=== PATIENT | female | born 1950 | race Native Hawaiian/Other Pacific Islander ===

== ENCOUNTER 2022-11-14 10:02 | Day surgery (SDC) | payer MEDICARE ==
--- NOTE | 2022-11-14 08:31 | HP ---
DATE OF SURGERY: 11/14/2022 HISTORY OF PRESENT ILLNESS: The patient is a 72-year-old with history of polyps in the past. No history of colon cancer. No change in bowel movements. No bloody stools. She is in need of follow up screening colonoscopy. PAST MEDICAL HISTORY: Diabetes mellitus type II. Hyperlipidemia. History of sinus infections in the past. PAST SURGICAL HISTORY: Laparoscopic cholecystectomy. Hysterectomy. She had colonoscopy in the past. MEDICATIONS: Atorvastatin, glimepiride, metformin. ALLERGIES: NKDA. FAMILY HISTORY: Diabetes. SOCIAL HISTORY: No smoking or alcohol abuse. REVIEW OF SYSTEMS: Fourteen systems reviewed. No chest pain or palpitations. Other systems negative or noncontributory as above and per preadmission questionnaire. PHYSICAL EXAMINATION: Weight 167 pounds. BMI 27.8. GENERAL: No acute distress. HEENT: Sclerae nonicteric. NECK: No JVD. CHEST: Equal excursion, nonlabored breathing. CVS: Regular rate and rhythm. ABDOMEN: Soft. No peritoneal signs. EXTREMITIES: No significant edema. NEURO: Alert, oriented, moving extremities symmetrically. RECTAL: Deferred timed to endoscopy exam. PSYCH: Appropriate mood and affect. SKIN: Dry. IMPRESSION: History of polyps, in need of follow up screening colonoscopy. I feel the patient is a candidate. She was shown the risk sheet explained the procedure in detail including but not limited to bleeding or infection, risk of bowel injury or perforation, risk of missed or nondiagnosis or incomplete exam possibly requiring barium enema, other studies or procedures, general risk of anesthesia or sedation, risk of bowel prep but not limited to, consent obtained. Will proceed with outpatient colonoscopy under MAC anesthesia.
[2022-11-14] MEDS ORDERED: Lactated Ringers 1,000 ML IV ONE (10:39)
[2022-11-14] MEDS ORDERED: Lactated Ringers 1,000 ML IV SCH (11:00)
[2022-11-14] MEDS ORDERED: Versed 2 MG/2 ML Injection ONE (11:47)
[2022-11-14] MEDS ORDERED: Xylocaine-Mpf 2% 5 Ml Vial ONE (11:47)
[2022-11-14] MEDS ORDERED: DIPRIVAN 200 MG/20 ML IV ONE ×2 (11:47→12:06)
[2022-11-14 13:18] VITALS: PULSE 63; O2SAT 100
[2022-11-14 13:27] VITALS: BP 168/83
--- NOTE | 2022-11-14 15:32 | OP ---
SURGERY DATE/TIME: 11/14/2022 1150 PREOPERATIVE DIAGNOSIS: History of polyps. POSTOPERATIVE DIAGNOSES: 1) ASA Class II. 2) Small colon and rectum polyps. 3) Mild diverticulosis. 4) Tortuous colon. 5) Fair bowel prep. 6) Withdrawal time approximately 12 minutes. PROCEDURES: 1) Colonoscopy to cecum. 2) Hot snare polypectomy sigmoid colon polyp x2. 3) Hot snare polypectomy rectal polyps x2. 4) Hot biopsy polypectomy small transverse colon polyp x1. 5) Hot biopsy polypectomy small descending colon polyps x2. 6) Hot biopsy polypectomy small sigmoid colon polyps versus hyperplastic lesion x2. SURGEON: Dr. Surjit Lopez. ANESTHESIA: MAC. ESTIMATED BLOOD LOSS: Minimal. INDICATIONS: As noted above. Risks and benefits explained in detail but not limited to and consent obtained. DESCRIPTION OF PROCEDURE AND FINDINGS: The patient is taken to the endoscopy room. General anesthesia induced. After official time out and no disagreement with planned procedure, digital rectal exam did not reveal any rectal masses. Video colonoscope inserted and passed up through the somewhat tortuous sigmoid, descending, transverse and ascending colon. With the external pressure the scope was finally able to be passed to the cecum. Appendiceal orifice area and cecum photo documented as well as the valve. The scope is then carefully withdrawn over the next 12 minutes. The small polyp in the transverse colon removed with hot biopsy polypectomy. A couple small ones in the descending colon hot biopsy polypectomy and another two small ones in the sigmoid colon removed with hot biopsy polypectomy. There was another 3 to 3.5 mm polyp removed with hot snare polypectomy in the distal sigmoid colon and two - 3 mm polyps in the rectum removed with hot snare polypectomy. She did have some diverticulosis in the left colon. Prep overall is fair with a little bit of liquidy semisolid stool just slightly limiting the exam for very small lesions. There are no signs of any large polyps, masses or obstructing lesions. The patient had minimal internal hemorrhoids. There were no signs of any large masses or obstructing lesions. The scope is withdrawn. The patient tolerated the procedure well. There was no family here to discuss the findings with according to staff. I will see her back in the office in a couple of weeks to go over the results.
== END 2022-11-14 13:36 | disposition home or self-care (01) ==
LOC: SDC 10:02
PROVIDERS: ATTEND Surgery
DX: Z09 Encounter for follow-up examination after completed treatment for conditions other than malignant neoplasm (principal); Z86.010 Personal history of colon polyps; E11.9 Type 2 diabetes mellitus without complications; K57.30 Diverticulosis of large intestine without perforation or abscess without bleeding; K64.8 Other hemorrhoids; D12.7 Benign neoplasm of rectosigmoid junction; D12.4 Benign neoplasm of descending colon; D12.5 Benign neoplasm of sigmoid colon; D12.3 Benign neoplasm of transverse colon
CPT/HCPCS: 82947; 88305; 99100; J2250; J2704